=== PATIENT | male | born 1935 | race Caucasian/White ===

== ENCOUNTER 2017-10-20 07:55 | Day surgery (SDC) | payer MEDICARE, BC ==
[~2017-10-20 07:55] MED LIST: Cefuroxime 10 MG/ML SYRINGE EYELF SCH; Lidocaine 1% PF 2 ML SDV INJECT SCH; Pilocarpine 4% Ophth Soln 15 ML Bot EYELF SCH
[2017-10-20] MEDS: Polymyxin B/Trimethoprim 10 ML Bottle EYELF SCH ×3 (09:00→10:19)
[2017-10-20] MEDS: Brimonidine 0.2% Ophth Soln 5 ML Bottle EYELF SCH ×3 (09:05→10:19)
--- NOTE | 2017-10-20 09:06 | PCM.PREANE ---
Preanesthetic Assessment - Anesthesia/Transfusion/Family Hx Anesthesia History: Prior Anesthesia Without Reaction Family History of Anesthesia Reaction: No Transfusion History: No Prior Transfusion(s) Intubation History: Unknown - Review of Systems General: No Symptoms Pulmonary: No Symptoms (quit 43 years ago for smoking.), Cough Cardiovascular: Lightheadedness (on occasion) Gastrointestinal: No Symptoms Neurological: No Symptoms Other: Reports: Depression, Anxiety - Physical Assessment NPO Status Date: 10/19/17 NPO Status Time: 20:00 Pulse: 64 O2 Sat by Pulse Oximetry: 97 Respiratory Rate: 16 Blood Pressure: 127/61 Temperature: 36.3 C Vital Signs: Last Vital Signs Temp 36.3 C 10/20/17 08:40 Pulse 64 10/20/17 08:40 Resp 16 10/20/17 08:40 BP 127/61 10/20/17 08:40 Pulse Ox 97 10/20/17 08:40 Height: 1.73 m Weight: 67.132 kg ASA Class: 2 Mental Status: Alert & Oriented x3 Airway Class: Mallampati = 2 Dentition: Reports: Dentures (upper and lower dentures.) Thyro-Mental Finger Breadths: 3 Mouth Opening Finger Breadths: 3 ROM/Head Extension: Full Lungs: Clear to Auscultation, Normal Respiratory Effort Cardiovascular: Regular Rate, Regular Rhythm, No Murmurs - Allergies Allergies/Adverse Reactions: Allergies Allergy/AdvReac Type Severity Reaction Status Date / Time Penicillins Allergy Cannot Verified 10/19/17 14:55 Remember - Anesthesia Plan Pre-Op Medication Ordered: None - Acknowledgements Anesthesia Type Planned: MAC Pt an Appropriate Candidate for the Planned Anesthesia: Yes Alternatives and Risks of Anesthesia Discussed w Pt/Guardian: Yes Pt/Guardian Understands and Agrees with Anesthesia Plan: Yes PreAnesthesia Questionnaire - HOME MEDS Home Medications: Home Meds Aspirin [Halfprin] 81 mg PO DAILY 10/19/17 [History] - CURRENT (IN HOUSE) MEDS Current Meds: Current Medications Brimonidine Tartrate (Alphagan 0.2% Ophth Soln) 0 ml EYELF ASDIRECTED LAMONT Stop: 10/20/17 18:00 Cefuroxime Sodium (Zinacef) 0 mg EYELF ASDIRECTED [place]ONT Stop: 10/20/17 18:00 Lidocaine HCl (Xylocaine-Mpf 1%) 10 ml INJECT ASDIRECTED [place]AMONT Stop: 10/20/17 18:00 Phenylephrine HCl (Luis M-Synephrine 2.5% Ophth Soln) 0 ml EYELF ASDIRECTED [place]ONT Stop: 10/20/17 18:00 Pilocarpine HCl (Pilocar 4% Ophth Soln) 0 ml EYELF ASDIRECTED [place]ONT Stop: 10/20/17 18:00 Polymyxin/Trimethoprim Sulfate (Polytrim Ophth Soln) 0 ml EYELF ASDIRECTED [place]ONT Stop: 10/20/17 18:00 Tetracaine HCl (Tetracaine 0.5% Steri-Unit Shyla) 0 ml EYELF ASDIRECTED [place]ONT Stop: 10/20/17 18:00 Tropicamide (Mydriacyl 1% Ophth Soln) 0 ml EYELF ASDIRECTED LAMONT Stop: 10/20/17 18:00
[2017-10-20] MEDS: Phenylephrine 2.5% Ophth Soln 2 ML Bot EYELF SCH ×5 (09:10→10:08)
[2017-10-20] MEDS: Tetracaine HCl/PF 0.5% 4 ML Bottle EYELF SCH ×2 (10:02→10:12)
--- NOTE | 2017-10-20 10:22 | PCM48HPAN ---
Post Anesthesia Note - EVALUATION WITHIN 48HRS OF ANESTHETIC Vital Signs in Normal Range: Yes Patient Participated in Evaluation: Yes Respiratory Function Stable: Yes Airway Patent: Yes Cardiovascular Function Stable: Yes Hydration Status Stable: Yes Pain Control Satisfactory: Yes Nausea and Vomiting Control Satisfactory: Yes Mental Status Recovered: Yes
== END 2017-10-20 10:33 | disposition home or self-care (01) ==
LOC: JD.SDS 07:55
PROVIDERS: ATTEND Ophthalmology
DX: H25.043 Posterior subcapsular polar age-related cataract, bilateral (principal); H33.321 Round hole, right eye; H35.3131 Nonexudative age-related macular degeneration, bilateral, early dry stage; H01.025 Squamous blepharitis left lower eyelid; H01.024 Squamous blepharitis left upper eyelid; H01.022 Squamous blepharitis right lower eyelid; H01.021 Squamous blepharitis right upper eyelid; H02.834 Dermatochalasis of left upper eyelid; H02.831 Dermatochalasis of right upper eyelid; G25.81 Restless legs syndrome; F32.9 Major depressive disorder, single episode, unspecified; Z88.0 Allergy status to penicillin; Z79.82 Long term (current) use of aspirin; Z87.891 Personal history of nicotine dependence; Z98.890 Other specified postprocedural states
CPT/HCPCS: 66984; J0697; A9270-GY; V2632

== ENCOUNTER → 2017-11-10 | Day surgery (SDC) | payer MEDICARE, BC ==
[~2017-11-10] MED LIST changes: -Cefuroxime 10 MG/ML SYRINGE EYELF SCH; +Cefuroxime 10 MG/ML SYRINGE EYERT SCH; -Pilocarpine 4% Ophth Soln 15 ML Bot EYELF SCH; +Pilocarpine 4% Ophth Soln 15 ML Bot EYERT SCH
[2017-11-10] MEDS: Polymyxin B/Trimethoprim 10 ML Bottle EYERT SCH ×3 (09:55→11:38)
[2017-11-10] MEDS: Brimonidine 0.2% Ophth Soln 5 ML Bottle EYERT SCH ×3 (10:00→11:38)
[2017-11-10] MEDS: Phenylephrine 2.5% Ophth Soln 2 ML Bot EYERT SCH ×5 (10:07→11:21)
[2017-11-10] MEDS: Tetracaine HCl/PF 0.5% 4 ML Bottle EYERT SCH ×2 (11:17→11:32)
== END ==
LOC: JD.SDS 08:58
PROVIDERS: ATTEND Ophthalmology
DX: H25.043 Posterior subcapsular polar age-related cataract, bilateral (principal); H02.831 Dermatochalasis of right upper eyelid; H02.834 Dermatochalasis of left upper eyelid; F32.9 Major depressive disorder, single episode, unspecified; Z87.891 Personal history of nicotine dependence; Z79.82 Long term (current) use of aspirin; Z88.0 Allergy status to penicillin; Z98.890 Other specified postprocedural states
CPT/HCPCS: 66984; J0697; V2632; A9270-GY